=== PATIENT | male | born 1970 | race Caucasian/White ===

== ENCOUNTER 2018-08-24 16:01 | Emergency (ER) | payer SELFPAY ==
[~2018-08-24] VITALS: Ht 165.1 cm; Wt 67.6 kg
[2018-08-24 16:10] VITALS: Ht 165.1 cm; Wt 67.6 kg
[2018-08-24 16:36] VITALS: BP 140/81
== END 2018-08-24 16:36 | disposition home or self-care (01) ==
LOC: ED 16:01
DX: Z46.6 Encounter for fitting and adjustment of urinary device (principal); N40.0 Benign prostatic hyperplasia without lower urinary tract symptoms; Z98.890 Other specified postprocedural states